=== PATIENT | female | born 1995 | race African-American/Black ===

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

== ENCOUNTER 2017-01-29 20:14 | Emergency (ER) | payer MEDICAID ==
[~2017-01-29] VITALS: Ht 162.6 cm; Wt 63.0 kg
[2017-01-29 20:19] VITALS: BP 108/71
[2017-01-29] MEDS ORDERED: NITROFURANTOIN (MACROBID) 100 MG CAPSULE PO ONE (21:30)
== END 2017-01-29 21:47 | disposition home or self-care (01) ==
LOC: ED 21:22
DX: O23.12 Infections of bladder in pregnancy, second trimester (principal); Z3A.24 24 weeks gestation of pregnancy
CPT/HCPCS: 81001; 87086; 99284

== ENCOUNTER 2017-02-17 22:28 | Outpatient (CLI) | payer MEDICAID ==
[2017-02-17] MEDS ORDERED: KETOROLAC 30 MG/1 ML IM SCH (23:30)
[2017-02-17] MEDS ORDERED: KETOROLAC 30 MG/1 ML ONE (23:36)
[2017-02-17 23:56] LABS: DAU SCREEN DISCLAIMER
[2017-02-18] LABS: HEMOGLOBIN 12.6 g/dL (11.7-16.4); WHITE BLOOD COUNT 12.7 x10^3/uL (4.5-13.2)
[2017-02-18 00:02] LABS: ASPARTATE AMINO TRANSFERASE 13 U/L (15-37); BLOOD UREA NITROGEN 9 mg/dL (7-18)
[2017-02-18 00:03] VITALS: BP 107/55
[2017-02-18] MEDS ORDERED: NITROFURANTOIN (MACROBID) 100 MG CAPSULE ONE (01:26)
[2017-02-18] MEDS ORDERED: NITR100C56 PO (01:30)
[2017-02-18] MEDS ORDERED: NITROFURANTOIN (MACROBID) 100 MG CAPSULE PO ONE (01:30)
== END 2017-02-18 01:40 | disposition home or self-care (01) ==
LOC: LDOP 22:28 → 2NE 23:30
PROVIDERS: ADMIT Obstetrics & Gynecology; ATTEND Obstetrics & Gynecology
DX: O26.892 Other specified pregnancy related conditions, second trimester (principal); O26.832 Pregnancy related renal disease, second trimester; N28.89 Other specified disorders of kidney and ureter; Z3A.26 26 weeks gestation of pregnancy
CPT/HCPCS: 36415; 76770; 80053; 80307; 81001; 85025; 87077; 87086; 87186; 96360; 96361; 96372; G0378; J1885; G0479

== ENCOUNTER 2018-10-14 18:45 | Emergency (ER) | payer MEDICAID ==
[~2018-10-14] VITALS: Ht 162.6 cm; Wt 51.0 kg
[2018-10-14 18:48] VITALS: BP 100/64
== END 2018-10-14 19:48 | disposition home or self-care (01) ==
LOC: ED 19:42
DX: R05 Cough (principal); J02.9 Acute pharyngitis, unspecified; R50.9 Fever, unspecified
CPT/HCPCS: 99283

== ENCOUNTER 2018-10-16 12:24 | Emergency (ER) | payer MEDICAID ==
[~2018-10-16] VITALS: Ht 162.6 cm; Wt 50.8 kg
[2018-10-16 12:39] VITALS: BP 106/57
== END 2018-10-16 17:17 | disposition home or self-care (01) ==
LOC: ED 16:10
DX: J18.9 Pneumonia, unspecified organism (principal); R11.10 Vomiting, unspecified
CPT/HCPCS: 71046; 99283

== ENCOUNTER 2019-02-12 23:59 | Emergency (ER) | payer MEDICAID ==
[~2019-02-12] VITALS: Ht 162.6 cm; Wt 50.0 kg
[~2019-02-12 23:59] MED LIST changes: +NITR100C56 PO
[2019-02-13 00:42] LABS: MICROSCOPIC NOT IND
--- NOTE | 2019-02-13 00:43 | NUR ---
PT IN [place] AT THIS TIME
[2019-02-13 00:50] LABS: CULTURE INDICATED? NO
--- NOTE | 2019-02-13 00:52 | NUR ---
PT BACK FROM ULTRASOUND AT THIS TIME. POC DISCUSSED. PT AND SPOUSE DENY CURRENT NEEDS.
[2019-02-13 01:46] VITALS: BP 118/76
== END 2019-02-13 01:49 | disposition home or self-care (01) ==
LOC: ED 23:59
DX: O26.891 Other specified pregnancy related conditions, first trimester (principal); R10.30 Lower abdominal pain, unspecified; O99.331 Smoking (tobacco) complicating pregnancy, first trimester; Z3A.01 Less than 8 weeks gestation of pregnancy
CPT/HCPCS: 36415; 76801; 81003; 84702; 99284

== ENCOUNTER 2019-11-19 20:37 | Emergency (ER) | payer MEDICAID ==
[~2019-11-19] VITALS: Ht 162.6 cm; Wt 61.0 kg
[2019-11-19 20:58] VITALS: BP 112/68
--- NOTE | 2019-11-19 21:56 | NUR ---
PATIENT SWABBED IN TRIAGE FOR STREP. TOLERATED WELL. SWAB SENT TO LAB
== END 2019-11-19 22:24 | disposition home or self-care (01) ==
LOC: ED 21:00
DX: J02.0 Streptococcal pharyngitis (principal)
CPT/HCPCS: 87081; 87147; 87880; 99283

== ENCOUNTER 2020-02-28 00:39 | Emergency (ER) | payer MEDICAID ==
[~2020-02-28] VITALS: Ht 162.6 cm; Wt 63.8 kg
[2020-02-28] MEDS ORDERED: ONDANSETRON 2MG/ML, 2ML IVPush ONE (01:30)
[2020-02-28] MEDS ORDERED: MORPHINE SULFATE 4 MG/ML, 1ML IVPush PRN (01:30)
[2020-02-28] MEDS ORDERED: MORPHINE SULFATE 4 MG/ML, 1ML ONE (01:44)
[2020-02-28] MEDS ORDERED: ONDANSETRON 2MG/ML, 2ML ONE (01:44)
[2020-02-28] MEDS ORDERED: PROPOFOL 10 MG/ML, 20ML ONE (01:55)
--- NOTE | 2020-02-28 02:07 | NUR ---
cc of left shoulder pain, [place] [employer] 3-4 hrs ago. 12/18 pain. boyfriend and infant son at bedside
--- NOTE | 2020-02-28 02:54 | NUR ---
PT TOLERATED PROCEDURAL SEDATION WELL. PT PLACED IN GOWN AND SPLINTED. CONNECTED TO ALL CARDIAC MONITORS AND C02 MONITORING. PT AWAKE BUT DROWSY AND ORIENTED. BOYFRIEND AND SON AT BEDSIDE.
[2020-02-28 03:51] VITALS: BP 141/87
== END 2020-02-28 03:54 | disposition home or self-care (01) ==
LOC: ED 03:10
DX: S43.005A Unspecified dislocation of left shoulder joint, initial encounter (principal); X58.XXXA Exposure to other specified factors, initial encounter; Y93.89 Activity, other specified; Y92.89 Other specified places as the place of occurrence of the external cause; Y99.8 Other external cause status
CPT/HCPCS: 23650; 73030; 96374; 96375; 99152; 99285; J2270; J2405

== ENCOUNTER 2020-03-27 18:20 | Emergency (ER) | payer MEDICAID ==
[~2020-03-27] VITALS: Ht 162.6 cm; Wt 63.8 kg
[2020-03-27 18:32] VITALS: BP 128/77
[2020-03-27 19:17] LABS: RAPID INFLUENZA A Negative (Negative); RAPID INFLUENZA B Negative (Negative)
--- NOTE | 2020-03-27 19:36 | NUR ---
PT TO ROOM FROM LOBBY
[2020-03-27] MEDS ORDERED: DEXAMETHASONE 4 MG TABLET ONE (19:49)
[2020-03-27] MEDS ORDERED: HYDROcodone/APAP 5/325 TABLET ONE (19:49)
[2020-03-27] MEDS ORDERED: DEXAMETHASONE 4 MG TABLET PO ONE (20:00)
[2020-03-27] MEDS ORDERED: HYDROcodone/APAP 5/325 TABLET PO ONE (20:00)
== END 2020-03-27 20:03 | disposition home or self-care (01) ==
LOC: ED 19:45
DX: J02.0 Streptococcal pharyngitis (principal); I49.9 Cardiac arrhythmia, unspecified; F17.200 Nicotine dependence, unspecified, uncomplicated
CPT/HCPCS: 71045; 87400; 87880; 93005; 99285

== ENCOUNTER 2020-04-26 18:45 | Emergency (ER) | payer MEDICAID ==
[~2020-04-26] VITALS: Ht 162.6 cm; Wt 64.2 kg
--- NOTE | 2020-04-26 19:08 | NUR ---
INTIAL OT CONTACT. PT PRESENTS TO ED C/O COUGH X 1.5 WEEKS. CONGESTION, EVANS, SORE THROAT. C/O SOB STARTED 1 WK AGO. PT SITTING UPRIGHT ON GURNEY, NADN, VSS. PT DENIES ANY NEEDS AT THIS TIME CALL LIGHT AND PERSONAL BELONGINGS WITHIN REACH. AWAITING ERP.
--- NOTE | 2020-04-26 20:00 | NUR ---
PT SITTING UPRIGHT ON OLGA AGUILAR, VSS. PT DENIES ANY NEEDS AT THIS TIME CALL LIGHT AND PERSONAL BELONGINGS WITHIN REACH.
[2020-04-26 20:54] VITALS: BP 141/89
[2020-04-26] MEDS ORDERED: DEXAMETHASONE 4 MG TABLET PO ONE (21:00)
[2020-04-26] MEDS ORDERED: DEXAMETHASONE 4 MG TABLET ONE (21:02)
--- NOTE | 2020-04-26 21:18 | NUR ---
Patient given discharge instructions and they have confirmed that they understand the instructions. Patient ambulatory with steady gait.
== END 2020-04-26 21:20 | disposition home or self-care (01) ==
LOC: ED 21:10
DX: R05 Cough (principal); R50.9 Fever, unspecified; R07.89 Other chest pain; J02.9 Acute pharyngitis, unspecified; M79.10 Myalgia, unspecified site
CPT/HCPCS: 71045; 93005; 99283

== ENCOUNTER 2020-08-22 12:35 | Emergency (ER) | payer MEDICAID ==
[~2020-08-22] VITALS: Ht 162.6 cm; Wt 69.7 kg
--- NOTE | 2020-08-22 14:20 | NUR ---
PT WHEELED TO ROOM 21
[2020-08-22] MEDS ORDERED: ACETAMINOPHEN 500 MG TABLET PO ONE (14:30)
[2020-08-22 14:53] LABS: MICROSCOPIC NOT IND
[2020-08-22] MEDS ORDERED: ACETAMINOPHEN 500 MG TABLET ONE (15:07)
--- NOTE | 2020-08-22 15:10 | NUR ---
TASK RN: DR CALZADA AT BEDSIDE, PT ASSESSMENT AND POC DISCUSSED AND QUESTIONS ANSWERED. PT MED NOTED FOR FEVER
[2020-08-22] MEDS ORDERED: DEXAMETHASONE 4 MG TABLET PO ONE (15:30)
[2020-08-22] MEDS ORDERED: BICILLIN-LA 1,200,000 UNITS/2 ML IM ONE (15:30)
[2020-08-22 16:00] VITALS: BP 120/75
--- NOTE | 2020-08-22 16:00 | NUR ---
ORDERED MEDS REQUESTED FROM PHARMACY
[2020-08-22] MEDS ORDERED: DEXAMETHASONE 4 MG TABLET ONE (16:09)
== END 2020-08-22 16:22 | disposition home or self-care (01) ==
LOC: ED 16:15
DX: J02.0 Streptococcal pharyngitis (principal)
CPT/HCPCS: 81003; 87880; 96372; 99283; J0561

== ENCOUNTER 2020-11-08 20:52 | Emergency (ER) | payer MEDICAID ==
[~2020-11-08] VITALS: Ht 162.6 cm; Wt 70.0 kg
[2020-11-08 21:24] VITALS: BP 130/85
[2020-11-08] MEDS ORDERED: SODIUM CHLORIDE FLUSH 10ML SYR IVF ONE ×2 (21:30→22:00)
--- NOTE | 2020-11-08 21:46 | NUR ---
Patient alert and oriented x4 GCS 15 alert and oriented upon initial sports internship. Patient presents to the emergency department complaining of left shoulder pain possible dislocation after throwing a baseball. Patient has had previous shoulder dislocations in the past with this left shoulder. Patient endorses severe pain, decreased range of motion. , At bedside to perform initial provider evaluation. We will set up for conscious sedation.
[2020-11-08] MEDS ORDERED: MORPHINE SULFATE 4 MG/ML, 1ML ONE (21:49)
[2020-11-08] MEDS ORDERED: ONDANSETRON 2MG/ML, 2ML ONE (21:49)
[2020-11-08] MEDS ORDERED: PROPOFOL 10 MG/ML, 20ML ONE (21:50)
[2020-11-08] MEDS ORDERED: KETOROLAC 30 MG/1 ML IV ONE (22:00)
[2020-11-08] MEDS ORDERED: ONDANSETRON 2MG/ML, 2ML IVPush ONE (22:00)
[2020-11-08] MEDS ORDERED: MORPHINE SULFATE 4 MG/ML, 1ML IVPush PRN (22:00)
[2020-11-08] MEDS ORDERED: PROPOFOL 10 MG/ML, 20ML IVPush ONE (22:00)
--- NOTE | 2020-11-08 22:19 | NUR ---
Pt back from Xray. Sedation set up complete. Pt on contiunous environmental monitoring specialist, BP monitor, pulse ox. Crash cart at bedside. Suction set up w/ adult sized ambu bag. Pt on 2L NC for O2 support during sedation. End tital monitoring set up as well. Consents and Procedural Sedation documentation at bedside.
--- NOTE | 2020-11-08 22:58 | NUR ---
At approximately 2240. Sedation completed by Dr. García. Successful reduction of left shoulder disclocation. Patient needed 170 mg of IV propofol. At this point time patient has achieved appropriate discharge sedation scale score. Vital signs stable patient alert and oriented x4.
--- NOTE | 2020-11-08 23:24 | NUR ---
Pt appropriate for discharge, alert and oriented, ambulatory to bathroom. Ride will be here in 15 minutes.
--- NOTE | 2020-11-08 23:45 | NUR ---
Patient/Caregiver given discharge instructions and they have confirmed that they understand the instructions. Patient ambulatory with steady gait. NAD, all questions answered appropriately, denies additional needs at this time. No personal belongings left in room after discharge.
== END 2020-11-08 23:47 | disposition home or self-care (01) ==
LOC: ED 21:50
DX: S43.005A Unspecified dislocation of left shoulder joint, initial encounter (principal); F17.200 Nicotine dependence, unspecified, uncomplicated; X58.XXXA Exposure to other specified factors, initial encounter; Y93.89 Activity, other specified; Y92.009 Unspecified place in unspecified non-institutional (private) residence as the place of occurrence of the external cause; Y99.8 Other external cause status
CPT/HCPCS: 23650; 73020; 73030; 96374; 96375; 99152; 99285; J2270; J2405; J2704